=== PATIENT | female | born 2000 ===

== ENCOUNTER 2022-04-27 14:12 | Emergency (ER) | payer OTHER ==
[~2022-04-27] VITALS: Ht 170.2 cm; Wt 88.0 kg
[2022-04-27] MEDS ORDERED: PRENATAL + DHA1 EAC1 (14:39)
[2022-04-27] MEDS ORDERED: ACIDOPHILUS1 EAC3 (14:40)
== END 2022-04-27 18:44 | disposition home or self-care (01) ==
LOC: ER 14:12
DX: O20.9 Hemorrhage in early pregnancy, unspecified (principal); Z3A.13 13 weeks gestation of pregnancy; Z91.013 Allergy to seafood